=== PATIENT | female | born 1995 ===

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

== ENCOUNTER 2017-01-07 15:04 | Emergency (ER) | payer MEDICAID ==
[2017-01-07 15:32] VITALS: BP 148/82; PULSE 70; RESP 18; TEMP 98.2; O2SAT 99
--- NOTE | 2017-01-07 16:00 | ED PDOC ---
HPI: Female Pain Time Seen by Provider: 01/07/17 15:43 Chief Complaint (Nursing): Female Genitourinary Chief Complaint (Provider): follow up History Per: Patient History/Exam Limitations: no limitations Additional Complaint(s): 21yo female return to the ED for follow up. Patient was seen here by this sheet writer on 12/27/2016 for abdominal cramping and vaginal bleeding have resolved. Past Medical History Reviewed: Historical Data, Nursing Documentation, Vital Signs Vital Signs: Last Vital Signs Temp 98.2 F 01/07/17 15:28 Pulse 70 01/07/17 15:28 Resp 18 01/07/17 15:28 BP 148/82 01/07/17 15:28 Pulse Ox 99 01/07/17 15:28 - Medical History PMH: No Chronic Diseases - Surgical History Surgical History: No Surg Hx - Family History Family History: States: Unknown Family Hx - Social History Drugs: Denies - Allergies Allergies/Adverse Reactions: Allergies Allergy/AdvReac Type Severity Reaction Status Date / Time No Known Allergies Allergy Verified 12/27/16 11:35 Review of Systems ROS Statement: Except As Marked, All Systems Reviewed And Found Negative Gastrointestinal: Negative for: Abdominal Pain Genitourinary Female: Negative for: Vaginal Bleeding Physical Exam - Reviewed Nursing Documentation Reviewed: Yes Vital Signs Reviewed: Yes - Physical Exam Appears: Positive for: Well, Non-toxic, No Acute Distress Head Exam: Positive for: ATRAUMATIC, NORMAL INSPECTION, NORMOCEPHALIC Skin: Positive for: Warm, Dry Eye Exam: Positive for: EOMI, PERRL Respiratory: Negative for: Respiratory Distress Gastrointestinal/Abdominal: Positive for: Soft. Negative for: Tenderness - Laboratory Results Result Diagrams: 01/07/17 16:17 01/07/17 16:17 - ECG O2 Sat by Pulse Oximetry: 99 (RA) Pulse Ox Interpretation: Normal Medical Decision Making Medical Decision Makin Will repeat labs, US Transvaginal and compare to previous results. US results reviewed w patient, concern for threatened explained in belarusian via [employer] inspector casing. Offered OB eval in ED but prefers to followup outpatient. Disposition - Clinical Impression Clinical Impression: Threatened miscarriage - Patient ED Disposition Is Patient to be Admitted: No Counseled Patient/Family Regarding: Studies Performed, Diagnosis, Need For Followup - Disposition [facility]errals[facility] Disposition: Routine/Home Disposition Time: 18:00 Condition: STABLE Additional Instructions: Followup with OB doctor in one week to determine viability of . Return to ER for any pain, bleeding or any concern. Instructions: Threatened Miscarriage (ED) Print Language: CHINESE Additional Comments - Additional Comments Additional Comments: Scribe Attestation: Documented by Frederic Colindres acting as a scribe for Jules Feliz DO. Provider Scribe Attestation: All medical record entries made by the Scribe were at my direction and personally dictated by me. I have reviewed the chart and agree that the record accurately reflects my personal performance of the history, physical exam, medical decision making, and the department course for this patient. I have also personally directed, reviewed, and agree with the discharge instructions and disposition.
[2017-01-07 16:29] LABS: BASO % 0.5 % (0.0-2.0); EOS # 0.1 K/uL (0.0-0.7); EOS % 0.9 % (0.0-4.0); HEMATOCRIT 39.5 % (34.0-47.0); LYMPH # 1.4 K/uL (1.0-4.3); LYMPH % 19.3 % (20.0-40.0); MEAN CELL VOLUME 91.1 fl (81.0-99.0); MEAN PLATELET VOLUME 7.4 fl (7.2-11.7); MONO # 0.5 K/uL (0.0-0.8); MONO % 7.1 % (0.0-10.0); NEUT # 5.3 K/uL (1.8-7.0); NEUT % 72.2 % (50.0-75.0); RED CELL DISTRIBUTION WIDTH 12.7 % (11.5-14.5); WHITE BLOOD COUNT 7.4 K/uL (4.8-10.8)
--- NOTE | 2017-01-07 16:41 | US ---
PROCEDURE: OB Pelvic Ultrasound HISTORY: r/o heterotopic ; followup exam COMPARISON: 12/27/2016 FINDINGS: UTERUS: Gestational sac: Single intrauterine gestation. Mean gestational age(Ultrasound estimated): 6 weeks and 2 days Daisy-gestational hemorrhage: None. Uterus measures 7.6 x 4.6 x 5.0 cm. There is a single intrauterine gestational sac. If fine septation is visualized within the gestational sac. Yolk sac and pole are not visualized CERVIX: Long and closed. No cervical abnormality seen. RIGHT OVARY: Measures 3.6 x 2.5 x 2.6 cm. No mass lesion. Normal flow. There is a 1.9 x 1.5 x 2.0 cm complicated cyst. LEFT OVARY: Measures 2.2 x 1.4 x 2.6 cm. No solid mass. Normal flow. FREE FLUID: There is small amount of free fluid in the right adnexa. OTHER FINDINGS: None. IMPRESSION: Single intrauterine gestation with mean gestational age of 6 weeks and 2 days. Yolk sac and pole are not visualized on the current examination. No adnexal mass or definite sonographic evidence of ectopic . Clinical follow-up, correlation with beta HCG levels and ultrasound follow-up is advised.
[2017-01-07 16:48] LABS: BLOOD UREA NITROGEN 12 mg/dl (7-17); CALCIUM 9.1 mg/dL (8.4-10.2); CARBON DIOXIDE 25 mmol/L (22-30); CHLORIDE 102 mmol/L (98-107); GFR AFRICAN-AMERICAN > 60; GLUCOSE,RANDOM 72 mg/dL (65-105); POTASSIUM 3.6 MMOL/L (3.6-5.0); SODIUM 140 mmol/l (132-148)
== END 2017-01-07 18:28 | disposition home or self-care (01) ==
LOC: H.ER 15:04
DX: O20.0 Threatened abortion (principal); Z3A.01 Less than 8 weeks gestation of pregnancy

== ENCOUNTER 2017-12-26 16:44 | Emergency (ER) | payer MEDICAID, OTHER ==
[2017-12-26 17:13] VITALS: BMI 26.8
--- NOTE | 2017-12-26 17:45 | OBHP ---
Datetime: 12/26/2017 17:30 IP Adm Impression: , intrauterine ; Intact Membranes IP Admit Plan: Observation/Evaluation Admit Comment, IP Provider: 22yo IUP at 26w by pt dates c/o dysuria for 2d. + freq urination ; some urgency. No CTX; no VB; +FM; no SROM PNC: [facility] in [place] - Dr Fine - undocumented PMH: denies PSH: denies NKA POBGYNH: spont Ab x1; no STD PFH: denies DM;HTN A: IUP at 26 by pt dates Dysuria PLAN: check UA po fluids Extremities - PN: Normal Abdomen - PN: Normal HEENT - PN: Normal General - PN: Normal FHR - Baseline A Provider: 140 Contraction Comments Provider: NONE Pool Provider: Negative IP Hx Assessment: Undocumented EGA AdmitDate IP: 26.3 Vital Signs Provider: Reviewed; Within Normal Limits IP Chief Complaint: Other NICHD Variability Prov Fetus A: Moderate 6-25bpm NICHD Accel Fetus A IP Provider: 10X10 FHR Category Provider Fetus A: Category I NICHD Decel Fetus A IP Provider: None
[2017-12-26 17:49] LABS: SQUAMOUS EPITHIAL < 1 /hpf (0-5); URINE BILIRUBIN NEGATIVE (NEGATIVE); URINE BLOOD NEGATIVE (NEGATIVE); URINE CLARITY CLEAR (Clear); URINE COLOR STRAW (YELLOW); URINE GLUCOSE (UA) NEG (Normal); URINE LEUKOCYTE ESTERASE NEG Leu/uL (Negative); URINE PROTEIN NEGATIVE (NEGATIVE); URINE UROBILINOGEN 0.2-1.0 mg/dL (0.2-1.0)
[2017-12-26 22:53] VITALS: PULSE 90; O2SAT 100
== END 2017-12-26 18:22 | disposition home or self-care (01) ==
LOC: H.EROB2 16:44
DX: O99.89 Other specified diseases and conditions complicating pregnancy, childbirth and the puerperium (principal); R30.0 Dysuria; R35.0 Frequency of micturition; Z3A.26 26 weeks gestation of pregnancy

== ENCOUNTER 2018-03-12 16:50 | Emergency (ER) | payer OTHER ==
[2018-03-12 18:16] VITALS: BMI 29.8
[2018-03-12 18:45] LABS: BASO # 0.1 K/uL (0.0-0.2); BASO % 1.2 % (0.0-2.0); EOS % 0.5 % (0.0-4.0); HEMOGLOBIN 13.5 g/dL (12.0-16.0); LYMPH # 1.8 K/uL (1.0-4.3); LYMPH % 20.6 % (20.0-40.0); MEAN CORPUSCULAR HEMOGLOBIN 30.8 pg (27.0-31.0); MEAN CORPUSCULAR HGB CONC 34.7 g/dL (33.0-37.0); MEAN PLATELET VOLUME 8.6 fl (7.2-11.7); MONO # 0.7 K/uL (0.0-0.8); MONO % 7.9 % (0.0-10.0); NEUT # 6.2 K/uL (1.8-7.0); NEUT % 69.8 % (50.0-75.0); NRBC % 0.1 % (0.0-0.0); RBC 4.37 Mil/uL (3.80-5.20); RED CELL DISTRIBUTION WIDTH 13.4 % (11.5-14.5); WHITE BLOOD COUNT 8.8 K/uL (4.8-10.8)
[2018-03-12 19:05] LABS: ALBUMIN 3.3 g/dL (3.5-5.0); ALT/SGPT 24 U/L (9-52); AST/SGOT 23 U/L (14-36); BILIRUBIN,DIRECT 0.2 mg/ml (0.0-0.4); BLOOD UREA NITROGEN 15 mg/dl (7-17); CALCIUM 9.3 mg/dL (8.4-10.2); GFR AFRICAN-AMERICAN > 60; GFR NON-AFRICAN AMERICAN > 60
[2018-03-12] MEDS ORDERED: Lactated Ringer's 1,000 ML IV SCH ×2 (20:00)
[2018-03-13 01:35] VITALS: BP 125/79; PULSE 89; TEMP 98.6
--- NOTE | 2018-03-13 13:20 | US ---
PROCEDURE: OB Pelvic Ultrasound HISTORY: decreased movements LMP: Unknown COMPARISON: No prior biophysical profile available. No prior obstetric ultrasound available for this gestation. FINDINGS: Biophysical profile scoring is as follows: breathing movements 2. movements 2. tones 2. Amniotic fluid 2. Total score: 8/8. Amniotic fluid index is 12.6 cm. cardiac activity recorded 1 at 33.9 beats per minute. Cervical length 5.0 cm with a closed internal os. presentation is cephalic. OTHER FINDINGS: None. IMPRESSION: Biophysical profile score 8/8. Additional details discussed above. Concordant preliminary report from [facility], 03/12/2018.
== END 2018-03-12 21:30 | disposition home or self-care (01) ==
LOC: H.EROB2 16:50
DX: O36.8131 Decreased fetal movements, third trimester, fetus 1 (principal); Z3A.37 37 weeks gestation of pregnancy
CPT/HCPCS: 76818; 80053; 82248; 83615; 84550; 85025; 85384; 96360; 99284; J7120

== ENCOUNTER 2018-03-17 09:06 | Inpatient (IN) | payer MEDICAID, OTHER ==
--- NOTE | 2018-03-17 09:26 | OBHP ---
Datetime: 03/12/2018 18:35 IP Adm Impression: , intrauterine ; No Active Labor IP Admit Plan: Observation/Evaluation; Discharge home Admit Comment, IP Provider: 22 yo IUP at 37.1wks here c/o decreased movements since in the afternoon. No CTX; no VB, Present FM but decresed. PAtient states last time she felt m ovement was 15 min ago. Also was noted on monitor some elevated BP measures. She denies N/V, headache , blurred vision, edema, abdominal pain. PNC: [facility] in - Dr Fine PMH: denies PSH: denies NKA POBGYNH: spont Ab x1 2017, no STD PFH: denies DM;HTN O: see PE tab. A/plan: 22 yo IUP at 37.1wks with decreased movements and elevated BP. -observation/reeval -preclampsia set ordered -BPP -/maternal monitoring Case discussed with Dr Simmons. Davis PGY 1 Addendum: Pt was seen and evaluated, resting comfortably in bed. Pre-eclampsia labs reviewed. BPP 8/8; LR 1L bolus administered. NST reactive. PTL precautions reviewed with patient. Discharged home to f/u with OB. Case d/w Dr. Troy Sage MD PGY1 Addendum: I saw and examined patient at presentation and follow-up. heart tracing reassuring, biophysi vicky profile 8 out of 8. All labs within normal limits. Patient discharged home and will follow up wit h care as already scheduled. Plan discussed with patient all patient questions answered. Troy Pelvic Type - PN: Not Done Extremities - PN: Normal Abdomen - PN: Normal Back - PN: Normal Breast - PN: Not Done Lungs - PN: Normal Heart - PN: Normal Thyroid - PN: Not Done Neurologic - PN: Normal HEENT - PN: Normal General - PN: Normal FHR - Baseline A Provider: 140 Membranes, Provider: Josuéging EGA AdmitDate IP: 37.1 Vital Signs Provider: Reviewed Vital Signs Provider Details: elevated measure BP: 139/95 IP Chief Complaint: Decreased movement NICHD Variability Prov Fetus A: Moderate 6-25bpm NICHD Accel Fetus A IP Provider: 15X15 FHR Category Provider Fetus A: Category I NICHD Decel Fetus A IP Provider: None Genitourinary Exam: Not Done DTRs - PN: Normal
[2018-03-17] MEDS ORDERED: Phenaphthazine-PH Test Paper VI ONE (09:35)
[2018-03-17 10:45] LABS: BASO % 0.3 % (0.0-2.0); EOS % 0.4 % (0.0-4.0); HEMOGLOBIN 13.7 g/dL (12.0-16.0); LYMPH # 1.8 K/uL (1.0-4.3); LYMPH % 20.4 % (20.0-40.0); MEAN CELL VOLUME 88.8 fl (81.0-99.0); MEAN CORPUSCULAR HEMOGLOBIN 30.6 pg (27.0-31.0); MEAN CORPUSCULAR HGB CONC 34.5 g/dL (33.0-37.0); MEAN PLATELET VOLUME 8.4 fl (7.2-11.7); MONO # 0.6 K/uL (0.0-0.8); MONO % 7.1 % (0.0-10.0); NEUT # 6.2 K/uL (1.8-7.0); NEUT % 71.8 % (50.0-75.0); NRBC % 0.1 % (0.0-0.0); RBC 4.48 Mil/uL (3.80-5.20); RED CELL DISTRIBUTION WIDTH 13.5 % (11.5-14.5); WHITE BLOOD COUNT 8.6 K/uL (4.8-10.8)
--- NOTE | 2018-03-17 13:51 | OBADHP ---
Datetime: 03/17/2018 10:00 Admit Comment, IP Provider: CC/HPI: 22 y.o. with IUP at 37.6 wks here with c/o vaginal leaking starting this morning at 4:00 a m. Pt. describes leaking as clear and persistent and having to change her underwear up to 3 times. Pt . denies any fevers, vaginal bleeding, contractions, or loss of movements. ROS: Pt. denies any headache, nause, vomiting, fever, abdominal pain, chest pain, or shortness of breat h. PNC: [facility] in [place] - Dr Babatunde PARSON: spont Ab x1 2017, no STD PMH: denies PSH: denies PFH: denies DM;HTN NKDA O: See Physical Exam A/P: 22 yo IUP at 37.6wks GA with Spontaneous Rupture of Membranes starting at 4a.m. on 03/17/18 . 1- Admit to Labor and Delivery with Monitoring 2- Fetus is Vertex confirmed with bedside ultrasound 3- records obtained from [place] and Reviewed 4- GBS status negative 5- Start Induction of labor with Cytotec Case discussed with Dr DOMINGUEZ Ramsay M.D. PGY 3 OB Hospitalist on-call With PGY1, I saw and examined this patient. Agree with note. FRANK Discussion with patient about condition, IOL, labor, meds, pain managment, delivery and . She understood and agreed to startying with Cytotec - obtain complete records from [facility] Pelvic Type - PN: Adequate Extremities - PN: Normal Abdomen - PN: Normal Breast - PN: Not Done Lungs - PN: Normal Heart - PN: Normal Thyroid - PN: Normal Neurologic - PN: Normal HEENT - PN: Normal General - PN: Normal Presentation-Admit: Vertex FHR - Baseline A Provider: 140 Membranes, Provider: Ruptured Pool Provider: Positive Nitrazine Provider: Positive IP Hx Assessment: The History has been Reviewed and is Current IP Chief Complaint: Suspected ruptured membranes NICHD Variability Prov Fetus A: Moderate 6-25bpm NICHD Accel Fetus A IP Provider: 15X15 FHR Category Provider Fetus A: Category I NICHD Decel Fetus A IP Provider: None Dilatation, Provider: 1cm Effacement, Provider: 0 Station, Provider: -3 Genitourinary Exam: Normal DTRs - PN: Normal EGA AdmitDate IP: 37.6 IP Adm Impression: Term, intrauterine ; No Active Labor; Ruptured Membranes IP Admit Plan: Admit to unit; Initiate labor induction protocol Datetime: 03/12/2018 18:35 Back - PN: Normal Vital Signs Provider: Reviewed Vital Signs Provider Details: elevated measure BP: 139/95 Datetime: 12/26/2017 17:30 Contraction Comments Provider: NONE
[2018-03-17 15:54] LABS: ALB/GLOB RATIO 1.1 (1.0-2.1); ALBUMIN 3.4 g/dL (3.5-5.0); ALT/SGPT 35 U/L (9-52); AST/SGOT 22 U/L (14-36); BILIRUBIN,DIRECT 0.2 mg/ml (0.0-0.4); BLOOD UREA NITROGEN 11 mg/dl (7-17); GFR AFRICAN-AMERICAN > 60; GFR NON-AFRICAN AMERICAN > 60; URIC ACID 4.8 mg/Dl (2.2-7.5)
[2018-03-17 16:18] LABS: SQUAMOUS EPITHIAL 1 /hpf (0-5); URINE BILIRUBIN NEGATIVE (NEGATIVE); URINE BLOOD NEGATIVE (NEGATIVE); URINE CLARITY CLEAR (Clear); URINE COLOR STRAW (YELLOW); URINE GLUCOSE (UA) NEG (Normal); URINE LEUKOCYTE ESTERASE NEG Leu/uL (Negative); URINE PROTEIN NEGATIVE (NEGATIVE); URINE UROBILINOGEN 0.2-1.0 mg/dL (0.2-1.0)
[2018-03-18] MEDS: NALBUPHINE HCL 10 MG/ML AMPUL IVP PRN ×2 (02:39→09:17)
[2018-03-18] MEDS: Lactated Ringer's 1,000 ML IV SCH ×2 (02:39→11:24)
[2018-03-18] MEDS ORDERED: Lactated Ringer's 1,000 ML IV SCH (02:45)
[2018-03-18] MEDS ORDERED: Fentanyl/Bupivacaine HCl 250 ML EPI ONE (12:49)
[2018-03-18] MEDS ORDERED: Multivitamin With Minerals Tab PO SCH (14:45)
--- NOTE | 2018-03-18 15:33 | OBDS ---
DELIVERY PERSONNEL Delivery Doctor: Mindi Jaime MD Regional Transfer Liaison: Kendra Sweeney RN Resident: Dr Werner MATERNAL INFORMATION Delivery Anesthesia: Epidural Medications in Delivery: Pitocin 30 units Estimated Blood Loss (ml): 100 Placenta Cultured: No Maternal Complications: None Provider Comments: Delivered live baby girl at 14:28, baby was bulb suctioned on the perineum and tr ansferred to the maternal chest. The cord was campled, 3 vessels noted. Cord blood sent to lab. Place nta delivered at 14:31 intact. EBL 100ml . 1st degree perineal laceration repaired with 2-0 vycrol. T he mother and baby tolerated well the procedure, baby to nursery with 9/9. YBecerra PGY 1 The patient was seen with resident I was present for delivery and I agree with the note LABOR SUMMARY EDC: 04/01/2018 00:00 No. Babies in Womb: 1 Attempted: No Labor Anesthesia: Epidural LABOR INFORMATION Reason for Induction: Not Applicable Cervical Ripening Agents: Cervidil; Cytotec @ Oxytocin: N/A Group B Beta Strep: Negative Antibiotics # of Doses: N/A Antibiotics Time of Last Dose: N/A Steroids Given: None Reason Steroids Not Administered: Not Applicable MEMBRANES Membranes Rupture Method: Artificial Rupture of Membranes: 03/18/2018 12:40 Length of Rupture (hrs): 1.80 Amniotic Fluid Color: Clear Amniotic Fluid Amount: Moderate Amniotic Fluid Odor: Normal STAGES OF LABOR Stage 3 hrs: 0 Stage 3 min: 3 VAGINAL DELIVERY Episiotomy: None Laceration Extension: First Degree Laceration Type: Perineal Laceration Repair: Yes Initial Vag Sponge Count: 10 Final Vag Sponge Count: 10 Initial Vag Sharps Count: 1 Final Vag Sharps Count: 1 Sponge Count Correct: Yes Sharps Count Correct: Yes BABY A INFORMATION Infant Delivery Date/Time: 03/18/2018 14:28 Method of Delivery: Vaginal Born in Route : No (Annotations: Data stored by N on behalf of user) : N/A Forceps: N/A Vacuum Extraction: N/A Shoulder Dystocia : No SHOULDER DYSTOCIA BABY A Delivery Date/Time: 03/18/2018 14:28 PRESENTATION/POSITION BABY A Presentation: Cephalic Cephalic Presentation: Vertex Vertex Position: Right Occipital Anterior Breech Presentation: N/A PLACENTA INFORMATION BABY A Placenta Delivery Time : 03/18/2018 14:31 Placenta Method of Delivery: Spontaneous Placenta Status: Delivered SCORES BABY A Heart Rate 1 min: >100 bpm Resp Effort 1 min: Good Cry Reflex Irritability 1 min: Cough or Sneeze or Pulls Away Muscle Tone 1 min: Active Motion Color 1 min: Body [place], Extremities Blue SCORE 1 MIN: 9 Heart Rate 5 min: >100 bpm Resp Effort 5 min: Good Cry Reflex Irritability 5 min: Cough or Sneeze or Pulls Away Muscle Tone 5 min: Active Motion Color 5 min: Body [place], Extremities Blue SCORE 5 MIN: 9 Resuscitation Effort 10 min: N/A INFANT INFORMATION BABY A Gestational Status: Term Infant Outcome : Liveborn Infant Condition : Stable Sex: Female IDENTIFICATION/MEDS BABY A ID Band Number: [id number] ID Band Location: Left Leg; Left Arm (Annotations: Data stored by [facility] on behalf of user) WEIGHT/LENGTH BABY A Birthweight (gms): 2820 Infant Weight (lb): 6 Infant Weight (oz): 3 CORD INFORMATION BABY A No. Cord Vessels: 3 Nuchal Cord Other: 0 Cord Blood Taken: Yes Infant Suction: Mouth; Nose (Annotations: Data stored by [facility] on behalf of user) ASSESSMENT BABY A Complications: None Physical Findings at Delivery: Within Normal Limits Infant Respirations: Appears Normal Orthopedic Brace Maker/ALS Called : Yes
[2018-03-19 06:18] LABS: HEMOGLOBIN 10.7 g/dL (12.0-16.0); MEAN CORPUSCULAR HGB CONC 34.9 g/dL (33.0-37.0); RBC 3.45 Mil/uL (3.80-5.20); RED CELL DISTRIBUTION WIDTH 13.7 % (11.5-14.5); WHITE BLOOD COUNT 9.6 K/uL (4.8-10.8)
[2018-03-19] MEDS: Multivitamin With Minerals Tab PO SCH (08:23)
[2018-03-20] MEDS: Multivitamin With Minerals Tab PO SCH (08:21)
--- NOTE | 2018-03-20 09:53 | OBPPN ---
Datetime: 03/20/2018 06:30 PP Pain Prov: Within normal limits PP Nausea Prov: Denies PP Flatus Prov: Yes PP BM Prov: Yes PP Breasts Prov: Not Done PP Heart Prov: Normal PP Lungs Prov: Normal PP Abdomen/Uterus Prov: Normal PP Lochia Prov: Normal PP Vulva/Perineum Prov: Not Done PP CVA Tenderness Prov: Normal PP Extremities Prov: Normal PP C/S Incision Prov: Not Applicable PP Progress Prov: Normal PP Impression Prov: Normal progression PP Plan Prov: Discharge PP Progress Note Prov: PPD 2 S: 22 yo s/p NVD on 03/18/2018 at 14:28. Pt. is seen and examined at bedside this AM. No s ignificant overnight events. Pt reports occasional abdominal pain, but well controlled with pain meds . Pt is ambulating without any difficulties. Breast and bottle feeding baby. Tolerating PO diet. [place] is similar to light menses in volume. Voiding freely with bowel movement and passing gas per rectu m. Denies fever, chills, diarrhea, nausea, vomiting, chest pain, dyspnea, and dizziness. O: VS: stable GEN: NAD Cardio: S1S2, no M/G/R Resp: clear breath sounds b/l Abdomen: BS+, NT, Uterus is firm and at the level of the umbilicus. EXT: No edema, calves nontender NEURO/PSYCHI: AAOx3, no grossly focal deficit, preserved affect and mood. Assessment/Plan: 22 yo s/p NVD on 03/18/2018 at 14:28. Pt remains afebrile, tolerating devin n with medication, tolerating PO intake, doing well on PPD 2. OOB with caution SCDs for DVT prophylaxis, pt ambulating Ibuprofen 600mg for pain. Encourage and ambulating CBC post-delivery: 10.7/30.7 Anticipated d/c to home, 03/20/2018. Case dw OB attending --- Nav Sage MD PGY-[address] Fraga: I have evaluated the pt independently and I agree with the above IP PP Procedures: None Vital Signs Provider PP: Reviewed; Within Normal Limits Datetime: 03/19/2018 08:00 Vital Signs Provider Details PP: Bottle Feeding
--- NOTE | 2018-03-20 09:53 | OBDCSUM ---
Datetime: 03/20/2018 06:30 Discharged to, Provider: Home Follow up at, Provider: [facility] Disch Instr Activity: Normal activity Disch Instr Diet: Regular Discharge Instructions, Provider: Routine instructions given Discharge Diagnosis, Provider: Term Delivered Discharge Time: 03/20/2018 10:00 Follow up in weeks, Provider: 6 weeks PP Disch Referrals: None Contraception discussed, Prov: Yes Disch Activity Restrictions: No lifting; Nothing in vagina - [place], tampons, douche Discharge Comment, Provider: Discharge Summary DOA: 03/18/2018 EGA: 37.6 Diagnosis: NVD Term Risk factors: none Summary of : 22 yo F L_D summary DOL: 03/18/2018 at 14:28 NVD NB: F : 9/9 Weight: 2820 g PP summary No serious complications during PP. Lochia= menses, mild pain, controlled with medications Rubella immune, Tdap 12/31/17 Blood type: A+ CBC pp: 10.0/30.7 Discharge Date: 03/20/2018 Time 10:00 AM Discharge Instructions: -encourage -Ibuprofen for pain PRN -Ambulate as tolerated -f/u NB visit 3-7 days w/ scale clerk and PP visit 6 weeks with OB Case d/w OB attending --- Nav Sage MD PGY-1 Contraception after Delivery: Control Pill/Patch
[2018-03-20 18:24] VITALS: BP 138/75; PULSE 78; RESP 20; TEMP 98.8; O2SAT 98
== END 2018-03-20 13:40 | disposition home or self-care (01) | DRG 373 ==
LOC: H.EROB2 09:06 → H.L&D 09:28 → H.EROB2 10:03 → H.L&D 10:04 → H.OB/GYN 03-18 17:43
PROVIDERS: ADMIT Obstetrics & Gynecology; ATTEND Obstetrics & Gynecology
PROC: 10E0XZZ Delivery of Products of Conception, External Approach (ICD-10-PCS; principal; 2018-03-18)
PROC: 0HQ9XZZ Repair Perineum Skin, External Approach (ICD-10-PCS; 2018-03-18)
DX: O70.0 First degree perineal laceration during delivery (principal); Z37.0 Single live birth; Z3A.37 37 weeks gestation of pregnancy